=== PATIENT | female | born 1995 | race Caucasian/White ===

== ENCOUNTER 2017-02-06 11:31 | Emergency (ER) | payer SELFPAY ==
[~2017-02-06] VITALS: Ht 170.2 cm; Wt 90.0 kg
[~2017-02-06 11:31] MED LIST: ADDERALL XR10 MG PO; ADDERALL XR30 MG PO; ADDERALL10 MG PO; AMOXICILLIN875 MG PO; AMOXIL400 MG/5 M PO; AMOXIL400 MG/52 PO; AUGMENTINES600 PO; CHILDRENS100 MG/5 M PO; COUGH DROPS1 LOZ; FLUARIX QUADRIV1 INJ IM; FLUTICASONE50 MCG; JOLESSA PO; Levaquin PO; NAPROSYN375 MG PO; PHENERGAN25 MG/ML IM; RONDEC DM SYRUP5 ML OR; RYBIX ODT50 MG PO; TESSALON PER100 MG PO; TORADOL30 MG/VIAL IJ; ULTRAM50 M1 PO; VENTOLIN HFA IN; VYVANSE20 MG PO; VYVANSE30 MG PO; VYVANSE40 MG PO; VYVANSE50 MG PO; ZPAK PO; tylenol
[2017-02-06] MEDS ORDERED: NORCO1 TA1 PO (12:37)
[2017-02-06 12:49] VITALS: BP 136/68
== END 2017-02-06 12:49 | disposition home or self-care (01) | DRG 563 ==
LOC: ED 11:31
PROC: 2W3JX1Z Immobilization of Right Finger using Splint (ICD-10-PCS; principal; 2017-02-06)
DX: S62.612A Displaced fracture of proximal phalanx of right middle finger, initial encounter for closed fracture (principal); Y93.K9 Activity, other involving animal care; Y92.008 Other place in unspecified non-institutional (private) residence as the place of occurrence of the external cause

== ENCOUNTER 2017-07-21 10:25 | Emergency (ER) | payer OTHER ==
[~2017-07-21] VITALS: Ht 170.2 cm; Wt 86.3 kg
[~2017-07-21 10:25] MED LIST changes: +NORCO1 TA1 PO
[2017-07-21] MEDS ORDERED: FLEXERIL PO (10:56)
[2017-07-21] MEDS ORDERED: MOTRIN800 MG PO (10:56)
[2017-07-21 11:25] VITALS: BP 120/74
== END 2017-07-21 11:25 | disposition home or self-care (01) | DRG 552 ==
LOC: ED 10:25
DX: M54.5 Low back pain (principal); M62.830 Muscle spasm of back; M79.604 Pain in right leg

== ENCOUNTER 2017-08-18 19:50 | Emergency (ER) | payer OTHER ==
[~2017-08-18] VITALS: Ht 170.2 cm; Wt 95.0 kg
[~2017-08-18 19:50] MED LIST changes: +FLEXERIL PO; +MOTRIN800 MG PO
[2017-08-18 20:31] LABS: HEMATOCRIT 39.1 % (37.0-47.0); HEMOGLOBIN 13.3 g/dl (12.0-16.0); IMMATURE GRANULOCYTES 0.2 % (0.0-1.0); MEAN CELL VOLUME 84.6 fL CALC (80.0-100.0); MEAN CORPUSCULAR HGB 28.8 pG CALC (26.0-32.0); NEUT# 5.4 thou/uL (2.00-7.15); RED BLOOD COUNT 4.62 mill/uL (4.20-5.60); RED CELL DISTRI WIDTH 12.9 % (11.5-15.5)
[2017-08-18 20:37] LABS: ALBUMIN 4.3 g/dL (3.2-5.0); ALKALINE PHOSPHATASE 75 u/l (38-126); ANION GAP 17 (6-22 (CALC)); BILIRUBIN, TOTAL 0.2 mg/dL (0.0-1.4); BUN 20 mg/dL (7-17); BUN/CREATININE RATIO 26 (12-20 (CALC)); CARBON DIOXIDE 25 mmol/l (22-30); CHLORIDE 106 mmol/l (95-108); CREATININE 0.8 mg/dL (0.5-1.0); GFR > 60 ML/MIN (>=60 (CALC)); GFR FOR AFR.AMER. > 60 ML/MIN (>=60 (CALC)); POTASSIUM 4.1 mmol/l (3.5-5.1); SGOT/AST 21 u/l (14-36); SGPT/ALT 33 u/l (9-52); SODIUM 144 mmol/l (137-146); TOTAL PROTEIN 7.6 g/dL (6.3-8.2)
[2017-08-18] MEDS ORDERED: IBUPROFEN600 MG PO (21:22)
[2017-08-18 21:43] VITALS: BP 128/88
== END 2017-08-18 21:43 | disposition home or self-care (01) | DRG 313 ==
LOC: ED 19:50
PROVIDERS: Emergency Medicine
DX: R07.89 Other chest pain (principal); R06.02 Shortness of breath

== ENCOUNTER 2017-10-17 14:49 | Emergency (ER) | payer OTHER ==
[~2017-10-17] VITALS: Ht 170.2 cm; Wt 94.0 kg
[~2017-10-17 14:49] MED LIST changes: +IBUPROFEN600 MG PO
[2017-10-17 17:09] LABS: HEMATOCRIT 39.1 % (37.0-47.0); HEMOGLOBIN 13.2 g/dl (12.0-16.0); IMMATURE GRANULOCYTES 0.3 % (0.0-1.0); MEAN CELL VOLUME 85.6 fL CALC (80.0-100.0); MEAN CORPUSCULAR HGB 28.9 pG CALC (26.0-32.0); MEAN CORPUSCULAR HGB CONC 33.8 g/L CALC (32.0-36.0); NEUT# 6.35 thou/uL (2.00-7.15); RED BLOOD COUNT 4.57 mill/uL (4.20-5.60); RED CELL DISTRI WIDTH 13.6 % (11.5-15.5)
[2017-10-17 17:10] LABS: URINE BILIRUBIN - DIPSTICK NEGATIVE (NEGATIVE); URINE BLOOD DIPSTICK SMALL (NEGATIVE); URINE COLOR YELLOW; URINE GLUCOSE - DIPSTICK NEGATIVE (NEGATIVE); URINE KETONE NEGATIVE (NEGATIVE); URINE LEUK ESTERASE NEGATIVE (NEGATIVE); URINE NITRITE - DIPSTICK NEGATIVE (Negative); URINE PROTEIN - DIPSTICK NEGATIVE (NEG-TRACE); URINE SPECIFIC GRAVITY 1.025; URINE UROBILINOGEN - DIPSTICK 0.2 E.U./dL (0.2)
[2017-10-17 17:17] LABS: URINE CLARITY CLEAR; URINE SQUAMOUS EPITHELIAL CELL FEW EPI/hpf (0-FEW)
[2017-10-17 17:18] LABS: ALBUMIN 4.5 g/dL (3.2-5.0); ALKALINE PHOSPHATASE 77 u/l (38-126); ANION GAP 18 (6-22 (CALC)); BILIRUBIN, TOTAL 0.3 mg/dL (0.0-1.4); BUN 15 mg/dL (7-17); BUN/CREATININE RATIO 20 (12-20 (CALC)); CARBON DIOXIDE 23 mmol/l (22-30); CHLORIDE 106 mmol/l (95-108); CREATININE 0.8 mg/dL (0.5-1.0); GFR > 60 ML/MIN (>=60 (CALC)); GFR FOR AFR.AMER. > 60 ML/MIN (>=60 (CALC)); LIPASE 119 u/l (23-300); SGOT/AST 23 u/l (14-36); SGPT/ALT 39 u/l (9-52); SODIUM 144 mmol/l (137-146); TOTAL PROTEIN 8.1 g/dL (6.3-8.2)
[2017-10-17] MEDS ORDERED: PEPCID20 MG PO (17:37)
[2017-10-17 17:44] VITALS: BP 122/75
== END 2017-10-17 17:44 | disposition home or self-care (01) | DRG 392 ==
LOC: ED 14:49
DX: K21.9 Gastro-esophageal reflux disease without esophagitis (principal); J45.909 Unspecified asthma, uncomplicated; R10.12 Left upper quadrant pain; R10.13 Epigastric pain

== ENCOUNTER 2017-12-12 17:06 | Emergency (ER) | payer OTHER ==
[~2017-12-12] VITALS: Ht 170.2 cm; Wt 99.0 kg
[~2017-12-12 17:06] MED LIST changes: +PEPCID20 MG PO
[2017-12-12 18:00] LABS: HEMATOCRIT 37.4 % (37.0-47.0); HEMOGLOBIN 12.6 g/dl (12.0-16.0); IMMATURE GRANULOCYTES 0.4 % (0.0-1.0); MEAN CELL VOLUME 83.9 fL CALC (80.0-100.0); MEAN CORPUSCULAR HGB 28.3 pG CALC (26.0-32.0); MEAN CORPUSCULAR HGB CONC 33.7 g/L CALC (32.0-36.0); NEUT# 6.63 thou/uL (2.00-7.15); RED BLOOD COUNT 4.46 mill/uL (4.20-5.60); RED CELL DISTRI WIDTH 13.5 % (11.5-15.5)
[2017-12-12 18:24] LABS: ALBUMIN 4.2 g/dL (3.2-5.0); ALKALINE PHOSPHATASE 89 u/l (38-126); ANION GAP 14 (6-22 (CALC)); BILIRUBIN, TOTAL 0.4 mg/dL (0.0-1.4); BUN 7 mg/dL (7-17); BUN/CREATININE RATIO 12 (12-20 (CALC)); CARBON DIOXIDE 25 mmol/l (22-30); CHLORIDE 105 mmol/l (95-108); CREATININE 0.6 mg/dL (0.5-1.0); GFR > 60 ML/MIN (>=60 (CALC)); GFR FOR AFR.AMER. > 60 ML/MIN (>=60 (CALC)); LIPASE 62 u/l (23-300); POTASSIUM 3.7 mmol/l (3.5-5.1); SGOT/AST 21 u/l (14-36); SGPT/ALT 42 u/l (9-52); SODIUM 140 mmol/l (137-146); TOTAL PROTEIN 7.7 g/dL (6.3-8.2)
[2017-12-12 18:36] LABS: MYOGLOBIN 19 ng/mL (0 - 62)
[2017-12-12] MEDS ORDERED: MOTRIN800 MG PO (18:50)
[2017-12-12 19:25] VITALS: BP 143/63
[2017-12-13] MEDS ORDERED: ZOFRAN4 MG/TAB PO (13:17)
== END 2017-12-12 19:18 | disposition home or self-care (01) ==
LOC: ED 17:06
PROVIDERS: Emergency Medicine
DX: R07.89 Other chest pain (principal); J45.909 Unspecified asthma, uncomplicated; Z98.890 Other specified postprocedural states

== ENCOUNTER 2017-12-13 12:32 | Emergency (ER) | payer OTHER ==
[~2017-12-13] VITALS: Ht 170.2 cm; Wt 95.5 kg
[2017-12-13] MEDS ORDERED: ZOFRAN4 MG/TAB PO (13:17)
[2017-12-13 13:22] VITALS: BP 138/94
== END 2017-12-13 13:25 | disposition home or self-care (01) ==
LOC: ED 12:32
DX: R11.2 Nausea with vomiting, unspecified (principal); J45.909 Unspecified asthma, uncomplicated; F17.210 Nicotine dependence, cigarettes, uncomplicated

== ENCOUNTER 2018-05-08 08:14 | Emergency (ER) | payer SELFPAY ==
[~2018-05-08] VITALS: Ht 170.2 cm; Wt 97.7 kg
[~2018-05-08 08:14] MED LIST changes: +ZOFRAN4 MG/TAB PO
[2018-05-08 09:00] LABS: URINE BILIRUBIN - DIPSTICK NEGATIVE (NEGATIVE); URINE BLOOD DIPSTICK NEGATIVE (NEGATIVE); URINE COLOR YELLOW; URINE GLUCOSE - DIPSTICK NEGATIVE (NEGATIVE); URINE KETONE 40 mg/dL (NEGATIVE); URINE NITRITE - DIPSTICK NEGATIVE (Negative); URINE PROTEIN - DIPSTICK NEGATIVE (NEG-TRACE); URINE SPECIFIC GRAVITY 1.025; URINE UROBILINOGEN - DIPSTICK 0.2 E.U./dL (0.2)
[2018-05-08 09:01] LABS: URINE CLARITY SL CLOUDY; URINE LEUK ESTERASE MODERATE (NEGATIVE)
[2018-05-08 09:07] LABS: URINE SQUAMOUS EPITHELIAL CELL MANY EPI/hpf (0-FEW)
[2018-05-08 09:29] LABS: HEMATOCRIT 38.8 % (37.0-47.0); HEMOGLOBIN 13.1 g/dl (12.0-16.0); IMMATURE GRANULOCYTES 0.3 % (0.0-5.0); MEAN CELL VOLUME 83.6 fL CALC (80.0-100.0); MEAN CORPUSCULAR HGB 28.2 pG CALC (26.0-32.0); MEAN CORPUSCULAR HGB CONC 33.8 g/L CALC (32.0-36.0); NEUT# 4.47 thou/uL (2.00-7.15); RED BLOOD COUNT 4.64 mill/uL (4.20-5.60); RED CELL DISTRI WIDTH 13.9 % (11.5-15.5)
[2018-05-08 09:46] LABS: ALBUMIN 4.2 g/dL (3.2-5.0); ALKALINE PHOSPHATASE 78 u/l (38-126); ANION GAP 13 (6-22 (CALC)); BILIRUBIN, TOTAL 0.7 mg/dL (0.0-1.4); BUN 12 mg/dL (7-17); BUN/CREATININE RATIO 22 (12-20 (CALC)); CARBON DIOXIDE 23 mmol/l (22-30); CHLORIDE 107 mmol/l (95-108); CREATININE 0.6 mg/dL (0.5-1.0); GFR > 60 ML/MIN (>=60 (CALC)); GFR FOR AFR.AMER. > 60 ML/MIN (>=60 (CALC)); LIPASE 69 u/l (23-300); POTASSIUM 4.4 mmol/l (3.5-5.1); SGOT/AST 26 u/l (14-36); SODIUM 138 mmol/l (137-146); TOTAL PROTEIN 7.5 g/dL (6.3-8.2)
[2018-05-08 09:52] LABS: INFLUENZA A NONE DETECTED (NONE DETECT); INFLUENZA B NONE DETECTED (NONE DETECT)
[2018-05-08] MEDS ORDERED: AMOXICILLIN500 M2 PO (10:52)
[2018-05-08 11:16] VITALS: BP 126/75
[2018-05-11] MEDS ORDERED: OMNICEF300 M1 PO (08:16)
== END 2018-05-08 11:17 | disposition home or self-care (01) | DRG 153 ==
LOC: ED 08:14
PROVIDERS: Family Medicine
DX: J02.0 Streptococcal pharyngitis (principal); J45.909 Unspecified asthma, uncomplicated; F17.210 Nicotine dependence, cigarettes, uncomplicated; R82.71 Bacteriuria
CPT/HCPCS: Q9967

== ENCOUNTER 2018-07-02 15:04 | Emergency (ER) | payer SELFPAY ==
[~2018-07-02] VITALS: Ht 170.2 cm; Wt 72.7 kg
[~2018-07-02 15:04] MED LIST changes: +AMOXICILLIN500 M2 PO; +OMNICEF300 M1 PO
[2018-07-02 15:13] VITALS: BP 141/64
== END 2018-07-02 16:55 | disposition left against medical advice (07) | DRG 951 ==
LOC: ED 15:04 → LWOBS 16:54
DX: Z91.19 Patient's noncompliance with other medical treatment and regimen (principal)

== ENCOUNTER 2018-08-14 07:47 | Emergency (ER) | payer SELFPAY ==
[~2018-08-14] VITALS: Ht 162.6 cm; Wt 118.0 kg
[2018-08-14] MEDS ORDERED: ZITHROMAX250 MG PO (08:48)
[2018-08-14 09:00] VITALS: BP 147/69
== END 2018-08-14 09:00 | disposition home or self-care (01) | DRG 153 ==
LOC: ED 07:47
DX: J02.9 Acute pharyngitis, unspecified (principal); I88.9 Nonspecific lymphadenitis, unspecified

== ENCOUNTER 2018-08-24 12:18 | Emergency (ER) | payer SELFPAY ==
[~2018-08-24] VITALS: Ht 162.6 cm; Wt 95.0 kg
[~2018-08-24 12:18] MED LIST changes: +ZITHROMAX250 MG PO
[2018-08-24] MEDS ORDERED: METFORMIN500 M2 PO (12:46)
[2018-08-24 14:10] VITALS: BP 128/86
== END 2018-08-24 14:10 | disposition home or self-care (01) | DRG 605 ==
LOC: ED 12:18
DX: S60.031A Contusion of right middle finger without damage to nail, initial encounter (principal); S69.91XA Unspecified injury of right wrist, hand and finger(s), initial encounter; R22.31 Localized swelling, mass and lump, right upper limb; X58.XXXA Exposure to other specified factors, initial encounter; Y93.K1 Activity, walking an animal; Y92.009 Unspecified place in unspecified non-institutional (private) residence as the place of occurrence of the external cause

== ENCOUNTER 2018-10-23 09:30 | Emergency (ER) | payer SELFPAY ==
[~2018-10-23] VITALS: Ht 162.6 cm; Wt 100.0 kg
[~2018-10-23 09:30] MED LIST changes: +METFORMIN500 M2 PO
[2018-10-23 10:18] LABS: HEMATOCRIT 39.3 % (37.0-47.0); HEMOGLOBIN 13.3 g/dl (12.0-16.0); IMMATURE GRANULOCYTES 0.4 % (0.0-5.0); MEAN CELL VOLUME 85.2 fL CALC (80.0-100.0); MEAN CORPUSCULAR HGB 28.9 pG CALC (26.0-32.0); MEAN CORPUSCULAR HGB CONC 33.8 g/L CALC (32.0-36.0); NEUT# 5.07 thou/uL (2.00-7.15); RED BLOOD COUNT 4.61 mill/uL (4.20-5.60); RED CELL DISTRI WIDTH 13.7 % (11.5-15.5)
[2018-10-23 10:24] LABS: URINE BILIRUBIN - DIPSTICK NEGATIVE (NEGATIVE); URINE BLOOD DIPSTICK NEGATIVE (NEGATIVE); URINE COLOR YELLOW; URINE GLUCOSE - DIPSTICK NEGATIVE (NEGATIVE); URINE KETONE NEGATIVE (NEGATIVE); URINE LEUK ESTERASE NEGATIVE (NEGATIVE); URINE NITRITE - DIPSTICK NEGATIVE (Negative); URINE PROTEIN - DIPSTICK NEGATIVE (NEG-TRACE); URINE UROBILINOGEN - DIPSTICK 0.2 E.U./dL (0.2)
[2018-10-23 10:36] LABS: ALBUMIN 4.1 g/dL (3.2-5.0); ALKALINE PHOSPHATASE 79 u/l (38-126); ANION GAP 12 (6-22 (CALC)); BILIRUBIN, TOTAL 0.4 mg/dL (0.0-1.4); BUN 13 mg/dL (7-17); BUN/CREATININE RATIO 23 (12-20 (CALC)); CARBON DIOXIDE 25 mmol/l (22-30); CHLORIDE 105 mmol/l (95-108); CREATININE 0.5 mg/dL (0.5-1.0); GFR > 60 ML/MIN (>=60 (CALC)); GFR FOR AFR.AMER. > 60 ML/MIN (>=60 (CALC)); LIPASE 69 u/l (23-300); POTASSIUM 4.5 mmol/l (3.5-5.1); SGOT/AST 20 u/l (14-36); SODIUM 137 mmol/l (137-146); TOTAL PROTEIN 6.8 g/dL (6.3-8.2)
[2018-10-23] MEDS ORDERED: TAMSULOSIN0.4 MG PO (11:35)
[2018-10-23] MEDS ORDERED: CEPHALEXIN500 M1 PO (11:35)
[2018-10-23 11:45] VITALS: BP 111/67
== END 2018-10-23 11:54 | disposition home or self-care (01) | DRG 690 ==
LOC: ED 09:30
PROVIDERS: Family Medicine
DX: N39.0 Urinary tract infection, site not specified (principal); F17.200 Nicotine dependence, unspecified, uncomplicated; Z87.442 Personal history of urinary calculi

== ENCOUNTER 2018-12-28 12:57 | Emergency (ER) | payer SELFPAY ==
[~2018-12-28] VITALS: Ht 162.6 cm; Wt 100.0 kg
[~2018-12-28 12:57] MED LIST changes: +CEPHALEXIN500 M1 PO; +TAMSULOSIN0.4 MG PO
[2018-12-28 13:24] LABS: URINE BILIRUBIN - DIPSTICK NEGATIVE (NEGATIVE); URINE BLOOD DIPSTICK NEGATIVE (NEGATIVE); URINE COLOR YELLOW; URINE GLUCOSE - DIPSTICK NEGATIVE (NEGATIVE); URINE KETONE TRACE mg/dL (NEGATIVE); URINE LEUK ESTERASE NEGATIVE (Negative); URINE NITRITE - DIPSTICK NEGATIVE (Negative); URINE PH 5.5 (4.5-8.0); URINE PROTEIN - DIPSTICK NEGATIVE (NEG-TRACE); URINE SPECIFIC GRAVITY 1.025; URINE UROBILINOGEN - DIPSTICK 0.2 E.U./dL (0.2)
[2018-12-28 13:26] LABS: URINE CLARITY CLEAR
[2018-12-28 14:00] VITALS: BP 122/66
== END 2018-12-28 14:00 | disposition home or self-care (01) | DRG 313 ==
LOC: ED 12:57
DX: R07.89 Other chest pain (principal); F17.200 Nicotine dependence, unspecified, uncomplicated

== ENCOUNTER 2019-07-15 14:24 | Emergency (ER) | payer BC ==
[2019-07-15] MEDS ORDERED: ZPAK PO (14:54)
[2019-07-15] MEDS ORDERED: NO HOME MEDS (15:13)
[2019-07-15 15:14] VITALS: BP 132/83
== END 2019-07-15 15:14 | disposition home or self-care (01) | DRG 153 ==
LOC: ED 14:24
DX: J06.9 Acute upper respiratory infection, unspecified (principal); F17.210 Nicotine dependence, cigarettes, uncomplicated

== ENCOUNTER 2020-01-16 08:58 | Emergency (ER) | payer BC ==
[~2020-01-16] VITALS: Ht 162.6 cm; Wt 100.0 kg
[~2020-01-16 08:58] MED LIST changes: +NO HOME MEDS
[2020-01-16 10:00] LABS: HEMATOCRIT 40.6 % (37.0-47.0); HEMOGLOBIN 13.5 g/dl (12.0-16.0); IMMATURE GRANULOCYTES 0.5 % (0.0-5.0); MEAN CELL VOLUME 84.6 fL CALC (80.0-100.0); MEAN CORPUSCULAR HGB 28.1 pG CALC (26.0-32.0); MEAN CORPUSCULAR HGB CONC 33.3 g/dL CAL (32.0-36.0); NEUT# 11.5 thou/uL (2.00-7.15); RED BLOOD COUNT 4.8 mill/uL (4.20-5.60); RED CELL DISTRI WIDTH 13.1 % (11.5-15.5)
[2020-01-16 10:14] LABS: ALBUMIN 4.6 g/dL (3.2-5.0); ALKALINE PHOSPHATASE 86 u/l (38-126); ANION GAP 14 (6-22 (CALC)); BUN 11 mg/dL (7-17); BUN/CREATININE RATIO 18 (12-20 (CALC)); CARBON DIOXIDE 22 mmol/l (22-30); CHLORIDE 102 mmol/l (95-108); CREATININE 0.6 mg/dL (0.5-1.0); GFR > 60 ML/MIN (>=60 (CALC)); GFR FOR AFR.AMER. > 60 ML/MIN (>=60 (CALC)); POTASSIUM 4.4 mmol/l (3.5-5.1); SGOT/AST 34 u/l (14-36); SODIUM 134 mmol/l (137-146)
[2020-01-16 10:20] LABS: TOTAL PROTEIN 8.6 g/dL (6.3-8.2)
[2020-01-16 10:28] LABS: HCG SERUM/URINE (NEG/POS) NEGATIVE (NEGATIVE)
[2020-01-16 10:45] LABS: TSH, 3RD GENERATION 0.73 uIU/mL (0.47 - 4.68)
[2020-01-16] MEDS ORDERED: ZITHROMAX250 MG PO (11:31)
[2020-01-16 11:40] VITALS: BP 120/80
== END 2020-01-16 11:49 | disposition home or self-care (01) | DRG 153 ==
LOC: ED 08:58
DX: J03.90 Acute tonsillitis, unspecified (principal); R59.0 Localized enlarged lymph nodes; J45.909 Unspecified asthma, uncomplicated; F17.210 Nicotine dependence, cigarettes, uncomplicated
CPT/HCPCS: Q9967

== ENCOUNTER 2020-02-28 07:53 | Emergency (ER) | payer BC ==
[~2020-02-28] VITALS: Ht 162.6 cm; Wt 86.0 kg
[2020-02-28 08:43] LABS: HEMATOCRIT 40.4 % (37.0-47.0); HEMOGLOBIN 13.5 g/dl (12.0-16.0); IMMATURE GRANULOCYTES 0.2 % (0.0-5.0); MEAN CELL VOLUME 85.1 fL CALC (80.0-100.0); MEAN CORPUSCULAR HGB 28.4 pG CALC (26.0-32.0); MEAN CORPUSCULAR HGB CONC 33.4 g/dL CAL (32.0-36.0); NEUT# 5.86 thou/uL (2.00-7.15); RED BLOOD COUNT 4.75 mill/uL (4.20-5.60); RED CELL DISTRI WIDTH 13.9 % (11.5-15.5)
[2020-02-28 08:45] LABS: URINE BLOOD DIPSTICK SMALL (NEGATIVE); URINE COLOR YELLOW; URINE GLUCOSE - DIPSTICK NEGATIVE (NEGATIVE); URINE KETONE TRACE mg/dL (NEGATIVE); URINE PROTEIN - DIPSTICK 30 mg/dL (NEG-TRACE); URINE SPECIFIC GRAVITY >=1.030; URINE UROBILINOGEN - DIPSTICK 0.2 E.U./dL (0.2)
[2020-02-28 08:48] LABS: URINE LEUK ESTERASE SMALL (NEGATIVE)
[2020-02-28 08:57] LABS: AMYLASE 40 u/l (30-110); LIPASE 45 u/l (23-300)
[2020-02-28 08:59] LABS: ALBUMIN 4.6 g/dL (3.2-5.0); ALKALINE PHOSPHATASE 111 u/l (38-126); BILIRUBIN, TOTAL 0.9 mg/dL (0.0-1.4); BUN 10 mg/dL (7-17); BUN/CREATININE RATIO 14 (12-20 (CALC)); CARBON DIOXIDE 26 mmol/l (22-30); CHLORIDE 101 mmol/l (95-108); CREATININE 0.7 mg/dL (0.5-1.0); ETHYL ALCOHOL 0 mg/dl (0-30); GFR > 60 ML/MIN (>=60 (CALC)); GFR FOR AFR.AMER. > 60 ML/MIN (>=60 (CALC)); SGOT/AST 42 u/l (14-36); SODIUM 136 mmol/l (137-146); TOTAL PROTEIN 8.1 g/dL (6.3-8.2); URINE BILIRUBIN - DIPSTICK NEGATIVE (NEGATIVE); URINE EPITHELIAL CELLS MANY EPI/hpf (0-FEW)
[2020-02-28 09:00] LABS: URINE BACTERIA FEW hpf; URINE TRICHOMONAS FEW hpf
[2020-02-28 09:01] LABS: ANION GAP 12 (6-22 (CALC)); POTASSIUM 3.2 mmol/l (3.5-5.1); URINE NITRITE - DIPSTICK NEGATIVE (Negative)
[2020-02-28 09:15] LABS: BETA-HCG, QUANT(RESULT NUMBER) <2 mIU/mL
[2020-02-28] MEDS ORDERED: ONDANSETRON4 MG PO (09:20)
[2020-02-28] MEDS ORDERED: CIPROFLOXACN500 MG PO (09:20)
[2020-02-28 10:39] VITALS: BP 119/71
== END 2020-02-28 10:40 | disposition home or self-care (01) | DRG 866 ==
LOC: ED 07:53
PROVIDERS: Emergency Medicine
DX: B34.9 Viral infection, unspecified (principal); N39.0 Urinary tract infection, site not specified; F17.200 Nicotine dependence, unspecified, uncomplicated; B96.20 Unspecified Escherichia coli [E. coli] as the cause of diseases classified elsewhere; Z87.442 Personal history of urinary calculi
CPT/HCPCS: J1956

== ENCOUNTER 2020-05-15 14:08 | Emergency (ER) | payer BC ==
[~2020-05-15] VITALS: Ht 162.6 cm; Wt 100.0 kg
[~2020-05-15 14:08] MED LIST changes: +CIPROFLOXACN500 MG PO; +ONDANSETRON4 MG PO
[2020-05-15] MEDS ORDERED: INDERAL 20MG TA20 MG PO (14:32)
[2020-05-15 14:44] LABS: HEMATOCRIT 38.3 % (37.0-47.0); HEMOGLOBIN 12.8 g/dl (12.0-16.0); IMMATURE GRANULOCYTES 0.3 % (0.0-5.0); MEAN CELL VOLUME 86.7 fL CALC (80.0-100.0); MEAN CORPUSCULAR HGB CONC 33.4 g/dL CAL (32.0-36.0); NEUT# 6.61 thou/uL (2.00-7.15); RED BLOOD COUNT 4.42 mill/uL (4.20-5.60); RED CELL DISTRI WIDTH 13.4 % (11.5-15.5)
[2020-05-15 15:09] LABS: ALBUMIN 4.3 g/dL (3.2-5.0); ALKALINE PHOSPHATASE 80 u/l (38-126); ANION GAP 11 (6-22 (CALC)); BUN 12 mg/dL (7-17); BUN/CREATININE RATIO 18 (12-20 (CALC)); CARBON DIOXIDE 27 mmol/l (22-30); CHLORIDE 104 mmol/l (95-108); CREATININE 0.7 mg/dL (0.5-1.0); GFR > 60 ML/MIN (>=60 (CALC)); GFR FOR AFR.AMER. > 60 ML/MIN (>=60 (CALC)); LIPASE 39 u/l (23-300); POTASSIUM 3.8 mmol/l (3.5-5.1); SGOT/AST 29 u/l (14-36); SODIUM 138 mmol/l (137-146); TOTAL PROTEIN 7.7 g/dL (6.3-8.2)
[2020-05-15 15:15] LABS: BILIRUBIN, TOTAL 0.5 mg/dL (0.0-1.4)
[2020-05-15 15:43] LABS: URINE BILIRUBIN - DIPSTICK NEGATIVE (NEGATIVE); URINE BLOOD DIPSTICK NEGATIVE (NEGATIVE); URINE COLOR YELLOW; URINE GLUCOSE - DIPSTICK NEGATIVE (NEGATIVE); URINE KETONE TRACE mg/dL (NEGATIVE); URINE LEUK ESTERASE NEGATIVE (NEGATIVE); URINE PH 6.5 (4.5-8.0); URINE PROTEIN - DIPSTICK NEGATIVE (NEG-TRACE); URINE UROBILINOGEN - DIPSTICK 0.2 E.U./dL (0.2)
[2020-05-15 15:45] LABS: URINE NITRITE - DIPSTICK POSITIVE (Negative)
[2020-05-15 15:52] LABS: URINE BACTERIA RARE hpf; URINE RBC 0-2 RBC/hpf (0-5); URINE SQUAMOUS EPITHELIAL CELL FEW EPI/hpf (0-FEW); URINE WBC 0-2 WBC/hpf (0-5)
[2020-05-15 16:39] VITALS: BP 112/53
== END 2020-05-15 16:53 | disposition home or self-care (01) ==
LOC: ED 14:08
PROVIDERS: Family Medicine
CPT/HCPCS: Q9967

== ENCOUNTER 2020-07-16 18:48 | Emergency (ER) | payer BC ==
[~2020-07-16] VITALS: Ht 157.5 cm; Wt 93.0 kg
[~2020-07-16 18:48] MED LIST changes: +INDERAL 20MG TA20 MG PO
[2020-07-16 19:30] LABS: HEMATOCRIT 40.2 % (37.0-47.0); HEMOGLOBIN 13.2 g/dl (12.0-16.0); IMMATURE GRANULOCYTES 0.3 % (0.0-5.0); MEAN CORPUSCULAR HGB 28.9 pG CALC (26.0-32.0); MEAN CORPUSCULAR HGB CONC 32.8 g/dL CAL (32.0-36.0); NEUT# 6.43 thou/uL (2.00-7.15); RED BLOOD COUNT 4.57 mill/uL (4.20-5.60); RED CELL DISTRI WIDTH 14.1 % (11.5-15.5)
[2020-07-16 19:43] LABS: URINE BILIRUBIN - DIPSTICK NEGATIVE (NEGATIVE); URINE BLOOD DIPSTICK LARGE (NEGATIVE); URINE COLOR YELLOW; URINE GLUCOSE - DIPSTICK NEGATIVE (NEGATIVE); URINE KETONE NEGATIVE (NEGATIVE); URINE LEUK ESTERASE NEGATIVE (NEGATIVE); URINE NITRITE - DIPSTICK NEGATIVE (Negative); URINE PROTEIN - DIPSTICK NEGATIVE (NEG-TRACE); URINE SPECIFIC GRAVITY 1.015; URINE UROBILINOGEN - DIPSTICK 0.2 E.U./dL (0.2)
[2020-07-16 19:48] LABS: ALBUMIN 4.2 g/dL (3.2-5.0); ALKALINE PHOSPHATASE 67 u/l (38-126); ANION GAP 12 (6-22 (CALC)); BILIRUBIN, TOTAL 0.4 mg/dL (0.0-1.4); BUN 11 mg/dL (7-17); BUN/CREATININE RATIO 17 (12-20 (CALC)); CARBON DIOXIDE 24 mmol/l (22-30); CHLORIDE 104 mmol/l (95-108); CREATININE 0.6 mg/dL (0.5-1.0); GFR > 60 ML/MIN (>=60 (CALC)); GFR FOR AFR.AMER. > 60 ML/MIN (>=60 (CALC)); POTASSIUM 4.3 mmol/l (3.5-5.1); SGOT/AST 19 u/l (14-36); SODIUM 135 mmol/l (137-146); TOTAL PROTEIN 7.3 g/dL (6.3-8.2)
[2020-07-16 19:51] LABS: URINE SQUAMOUS EPITHELIAL CELL MODERATE EPI/hpf (0-FEW)
[2020-07-16 20:04] LABS: BETA-HCG, QUANT(RESULT NUMBER) <2 mIU/mL
[2020-07-16 20:30] VITALS: BP 124/70
== END 2020-07-16 20:38 | disposition home or self-care (01) | DRG 761 ==
LOC: ED 18:48
PROVIDERS: Emergency Medicine
DX: N93.8 Other specified abnormal uterine and vaginal bleeding (principal); J45.909 Unspecified asthma, uncomplicated; F17.200 Nicotine dependence, unspecified, uncomplicated

== ENCOUNTER 2021-06-25 11:47 | Emergency (ER) | payer BC ==
[~2021-06-25] VITALS: Ht 157.5 cm; Wt 96.6 kg
[2021-06-25 14:48] LABS: HEMATOCRIT 42.7 % (37.0-47.0); HEMOGLOBIN 14.5 g/dl (12.0-16.0); IMMATURE GRANULOCYTES 0.1 % (0.0-5.0); MEAN CELL VOLUME 87.3 fL CALC (80.0-100.0); MEAN CORPUSCULAR HGB 29.7 pG CALC (26.0-32.0); RED BLOOD COUNT 4.89 mill/uL (4.20-5.60); RED CELL DISTRI WIDTH 13.2 % (11.5-15.5)
[2021-06-25 15:01] LABS: ANION GAP 10 (6-22 (CALC)); BUN 7 mg/dL (7-17); BUN/CREATININE RATIO 12 (12-20 (CALC)); CHLORIDE 104 mmol/l (95-108); CREATININE 0.6 mg/dL (0.5-1.0); GFR > 60 ML/MIN (>=60 (CALC)); GFR FOR AFR.AMER. > 60 ML/MIN (>=60 (CALC)); POTASSIUM 3.7 mmol/l (3.5-5.1); SODIUM 139 mmol/l (137-146)
[2021-06-25 15:13] LABS: CARBON DIOXIDE 29 mmol/l (22-30)
[2021-06-25 15:27] VITALS: BP 126/71
== END 2021-06-25 15:27 | disposition home or self-care (01) | DRG 179 ==
LOC: ED 11:47
PROVIDERS: Family Medicine
DX: U07.1 COVID-19 (principal); J45.909 Unspecified asthma, uncomplicated; F17.290 Nicotine dependence, other tobacco product, uncomplicated; Z87.442 Personal history of urinary calculi

== ENCOUNTER 2021-12-19 04:38 | Emergency (ER) | payer BC ==
[2021-12-19] VITALS (7 sets, daily range): BP systolic 96–140; BP diastolic 53–87
[~2021-12-19] VITALS: Ht 157.5 cm; Wt 95.0 kg
[2021-12-19 05:13] LABS: HEMATOCRIT 40.2 % (37.0-47.0); HEMOGLOBIN 13.4 g/dl (12.0-16.0); IMMATURE GRANULOCYTES 0.1 % (0.0-5.0); MEAN CELL VOLUME 88.5 fL CALC (80.0-100.0); MEAN CORPUSCULAR HGB 29.5 pG CALC (26.0-32.0); MEAN CORPUSCULAR HGB CONC 33.3 g/dL CAL (32.0-36.0); NEUT# 7.47 thou/uL (2.00-7.15); RED BLOOD COUNT 4.54 mill/uL (4.20-5.60)
[2021-12-19 05:16] LABS: URINE BLOOD DIPSTICK SMALL (NEGATIVE); URINE COLOR YELLOW; URINE KETONE 15 mg/dL (NEGATIVE); URINE LEUK ESTERASE TRACE (NEGATIVE); URINE PROTEIN - DIPSTICK 100 mg/dL (NEG-TRACE); URINE SPECIFIC GRAVITY >=1.030; URINE UROBILINOGEN - DIPSTICK 0.2 E.U./dL (0.2)
[2021-12-19 05:19] LABS: URINE BILIRUBIN - DIPSTICK SMALL (NEGATIVE)
[2021-12-19 05:20] LABS: URINE GLUCOSE - DIPSTICK NEGATIVE (NEGATIVE); URINE NITRITE - DIPSTICK NEGATIVE (Negative)
[2021-12-19 05:30] LABS: URINE BACTERIA MANY hpf; URINE EPITHELIAL CELLS MANY EPI/hpf (0-FEW)
[2021-12-19 05:31] LABS: URINE TRICHOMONAS FEW hpf; URINE YEAST FEW hpf
[2021-12-19 05:34] LABS: ALBUMIN 4.4 g/dL (3.2-5.0); ALKALINE PHOSPHATASE 77 u/l (38-126); ANION GAP 13 (6-22 (CALC)); BUN 9 mg/dL (7-17); BUN/CREATININE RATIO 14 (12-20 (CALC)); CARBON DIOXIDE 25 mmol/l (22-30); CHLORIDE 102 mmol/l (95-108); CREATININE 0.6 mg/dL (0.5-1.0); GFR FOR AFR.AMER. > 60 ML/MIN (>=60 (CALC)); GFR OTHER RACES > 60 ML/MIN (>=60 (CALC)); LIPASE 40 u/l (23-300); POTASSIUM 3.6 mmol/l (3.5-5.1); SGOT/AST 23 u/l (14-36); SODIUM 136 mmol/l (137-146); TOTAL PROTEIN 7.9 g/dL (6.3-8.2)
[2021-12-19 05:35] LABS: BILIRUBIN, TOTAL 0.7 mg/dL (0.0-1.4)
[2021-12-19 06:16] LABS: BETA-HCG, QUANT(RESULT NUMBER) 84729 mIU/mL
[2021-12-19] MEDS ORDERED: ZOFRAN4 MG/TAB PO (06:56)
== END 2021-12-19 07:28 | disposition home or self-care (01) | DRG 833 ==
LOC: ED 04:38
PROVIDERS: Family Medicine
DX: O21.9 Vomiting of pregnancy, unspecified (principal); O99.511 Diseases of the respiratory system complicating pregnancy, first trimester; J45.909 Unspecified asthma, uncomplicated; O99.331 Smoking (tobacco) complicating pregnancy, first trimester; F17.200 Nicotine dependence, unspecified, uncomplicated; Z3A.01 Less than 8 weeks gestation of pregnancy; Z20.822 Contact with and (suspected) exposure to COVID-19

== ENCOUNTER 2024-06-29 09:03 | Emergency (ER) | payer SELFPAY ==
[~2024-06-29] VITALS: Ht 157.5 cm; Wt 99.0 kg
[2024-06-29 09:15] VITALS: BP 119/101
[2024-06-29 09:30] VITALS: BP 112/84
[2024-06-29] MEDS ORDERED: KETOROLAC TROMETHAMINE 30 MG/ML SDV IM ONE (09:40)
[2024-06-29] MEDS ORDERED: METOCLOPRAMIDE HCL 10 MG/2 ML SDV IM ONE (09:40)
[2024-06-29] MEDS ORDERED: DiphenhydrAMINE HCL 50 MG/ML SDV IM ONE (09:40)
[2024-06-29 10:00] VITALS: BP 116/61
[2024-06-29] MEDS ORDERED: IMITREX50 MG PO (10:26)
[2024-06-29 10:30] VITALS: BP 103/67
[2024-06-29 10:40] VITALS: BP 103/67
== END 2024-06-29 10:40 | disposition home or self-care (01) | DRG 103 ==
LOC: ED 09:03
DX: G43.009 Migraine without aura, not intractable, without status migrainosus (principal); F17.200 Nicotine dependence, unspecified, uncomplicated
CPT/HCPCS: J1200; J2765